=== PATIENT | female | born 1990 | race Caucasian/White ===

== ENCOUNTER 2018-12-14 14:55 | Outpatient (CLI) | payer OTHER ==
[2018-12-14 15:12] LABS: BHCG - Serum POSITIVE (NEGATIVE); Pregs Control Bar Appear? YES (CONTROL BAR)
== END 2018-12-14 14:56 | disposition home or self-care (01) ==
LOC: NAV LAB 14:55
DX: Z00.00 Encounter for general adult medical examination without abnormal findings (principal)
CPT/HCPCS: 84703